=== PATIENT | female | born 1930 | race Caucasian/White ===

== ENCOUNTER 2017-05-21 10:25 | Inpatient (IN) | payer OTHER ==
[~2017-05-21] VITALS: Ht 162.6 cm; Wt 69.1 kg
[~2017-05-21 10:25] MED LIST: ASPIRIN325 MG PO; BENTYL20 MG PO; CALTRATE 600 +1 EAC1 PO; CIPRO500 MG PO; CRESTOR10 MG PO; DIOVAN160 MG PO; MOTRIN800 MG PO; PREDNISONE50 MG PO; ZITHROMAX Z-PA250 MG PO; ZOFRAN4 MG PO
[2017-05-21 11:32] LABS: MCH 28.5 PG (29.0-34.0); MCHC 32.3 G/DL (30.0-36.0); MCV 88.3 FL (83-99); MEAN PLAT.VOLUME 9.2 uM^3 (9.5-12.4); PLATELET COUNT 278 K/uL (156-360); RBC DIS.WIDTH-CV 14.2 % (11.8-14.6); RBC DIS.WIDTH-SD 46.1 % (39-53); RED BLOOD COUNT 4.53 M/uL (3.80-5.20); WHITE BLOOD COUNT 8.3 K/uL (4.1-10.2)
[2017-05-21 11:37] LABS: ADD MIUA? NO; BILIRUBIN NEGATIVE; BLOOD NEGATIVE; COLOR YELLOW ((YELLOW)); GLUCOSE (STRIP) NEGATIVE; KETONES NEGATIVE; LEUKOCYTES NEGATIVE; NITRITE NEGATIVE; PROTEIN (STRIP) NEGATIVE; SPECIFIC GRAVITY 1.016 (1.000-1.030); UCUL ADDED? NO; UROBILINOGEN 0.2 MG/DL (0.2-1.0)
[2017-05-21 11:44] LABS: CHLORIDE 106 mEq/L (99-109); POTASSIUM 4.6 mEq/L (3.7-5.4); SODIUM 136 mEq/L (136-147)
[2017-05-21 11:46] LABS: GLUCOSE 114 mg/dL (70-99)
[2017-05-21 11:47] LABS: ANION GAP 9 MEQ/L (2-14)
[2017-05-21 11:48] LABS: TOTAL BILIRUBIN 0.5 mg/dL (0.0-1.0)
[2017-05-21 11:50] LABS: ALKALINE PHOSPHATASE 105 IU/L (3-129); GFR ESTIMATE (CALCULATED) > 59 mL/min/
[2017-05-21 11:51] LABS: UREA NITROGEN (BUN) 35 mg/dL (9-23)
[2017-05-21 12:39] LABS: TROP-I INTERPRETATION NEGATIVE; TROPONIN-I < 0.01 ng/mL (0.0-0.30)
[2017-05-21] MEDS ORDERED: NORVASC10 MG PO (13:43)
[2017-05-21] MEDS ORDERED: VITAMIN B-12250 MCG PO (13:43)
[2017-05-21] MEDS ORDERED: OSTEO BI-FLEX1 EAC2 PO (13:43)
[2017-05-21] MEDS ORDERED: VITAMIN D31000 UNI2 PO (13:44)
[2017-05-21] MEDS ORDERED: ALENDRONATE SOD70 MG PO (13:44)
[2017-05-21 21:00] VITALS: BP 153/70
[2017-05-22 00:13] VITALS: BP 131/60
[2017-05-22 04:15] VITALS: BP 124/58
[2017-05-22 06:33] LABS: HEMATOCRIT 33.2 % (36.0-46.0); MCH 27.9 PG (29.0-34.0); MCHC 31.6 G/DL (30.0-36.0); MCV 88.1 FL (83-99); MEAN PLAT.VOLUME 8.7 uM^3 (9.5-12.4); PLATELET COUNT 246 K/uL (156-360); RBC DIS.WIDTH-CV 14.3 % (11.8-14.6); RBC DIS.WIDTH-SD 46.1 % (39-53); RED BLOOD COUNT 3.77 M/uL (3.80-5.20)
[2017-05-22 06:51] LABS: ANION GAP 8 MEQ/L (2-14); CHLORIDE 108 MEQ/L (99-109); GFR ESTIMATE (CALCULATED) > 59 mL/min/; GLUCOSE 88 mg/dL (70-99); POTASSIUM 4.3 MEQ/L (3.7-5.4); SAMPLE HEMOLYSIS CHECK 0; SAMPLE ICTERIC CHECK 0; SAMPLE LIPEMIA CHECK 0; SODIUM 139 MEQ/L (136-147); UREA NITROGEN (BUN) 23 mg/dL (9-23)
[2017-05-22 07:20] VITALS: BP 147/65
[2017-05-22 11:55] VITALS: BP 115/58
[2017-05-22 15:40] VITALS: BP 123/59
[2017-05-22 20:36] VITALS: BP 130/61
[2017-05-23] VITALS (7 sets, daily range): BP systolic 125–169; BP diastolic 60–78
[2017-05-23 11:39] LABS: HEMATOCRIT 36.1 % (36.0-46.0); MCH 27.9 PG (29.0-34.0); MCHC 31.6 G/DL (30.0-36.0); MCV 88.3 FL (83-99); MEAN PLAT.VOLUME 8.6 uM^3 (9.5-12.4); PLATELET COUNT 260 K/uL (156-360); RBC DIS.WIDTH-CV 13.7 % (11.8-14.6); RBC DIS.WIDTH-SD 44.4 % (39-53); RED BLOOD COUNT 4.09 M/uL (3.80-5.20); WHITE BLOOD COUNT 4.4 K/uL (4.1-10.2)
[2017-05-23 12:14] LABS: ANION GAP 15 MEQ/L (2-14); CHLORIDE 106 MEQ/L (99-109); SAMPLE HEMOLYSIS CHECK 0; SAMPLE ICTERIC CHECK 0; SAMPLE LIPEMIA CHECK 0; SODIUM 140 MEQ/L (136-147)
[2017-05-23 12:20] LABS: GFR ESTIMATE (CALCULATED) > 59 mL/min/; GLUCOSE 62 mg/dL (70-99); UREA NITROGEN (BUN) 17 mg/dL (9-23)
[2017-05-24 03:35] VITALS: BP 133/74
[2017-05-24 06:44] LABS: HEMATOCRIT 34.3 % (36.0-46.0); MCH 27.9 PG (29.0-34.0); MCHC 31.8 G/DL (30.0-36.0); MCV 87.9 FL (83-99); MEAN PLAT.VOLUME 9.4 uM^3 (9.5-12.4); PLATELET COUNT 241 K/uL (156-360); RBC DIS.WIDTH-CV 13.6 % (11.8-14.6); RBC DIS.WIDTH-SD 43.8 % (39-53); WHITE BLOOD COUNT 3.9 K/uL (4.1-10.2)
[2017-05-24 07:05] VITALS: BP 133/57
[2017-05-24 07:05] LABS: ANION GAP 12 MEQ/L (2-14); CHLORIDE 105 MEQ/L (99-109); GFR ESTIMATE (CALCULATED) > 59 mL/min/; GLUCOSE 67 mg/dL (70-99); POTASSIUM 4.3 MEQ/L (3.7-5.4); SAMPLE HEMOLYSIS CHECK 0; SAMPLE ICTERIC CHECK 0; SAMPLE LIPEMIA CHECK 0; SODIUM 140 MEQ/L (136-147); UREA NITROGEN (BUN) 12 mg/dL (9-23)
[2017-05-24 09:51] LABS: POINT-OF-CARE METER ID UU14162508; POINT-OF-CARE USER ID PUTDRM
[2017-05-24 10:46] LABS: POINT-OF-CARE METER ID UU14162508; POINT-OF-CARE USER ID PUTDRM
[2017-05-24 11:20] VITALS: BP 176/70
[2017-05-24 15:28] VITALS: BP 144/69
[2017-05-24 17:31] LABS: POINT-OF-CARE METER ID UU14162508; POINT-OF-CARE USER ID PUTDRM
[2017-05-24 19:00] VITALS: BP 132/59
[2017-05-25 00:28] VITALS: BP 151/73
[2017-05-25 01:00] LABS: POINT-OF-CARE METER ID UU14162508
[2017-05-25 04:25] VITALS: BP 148/68
[2017-05-25 07:37] VITALS: BP 137/71
[2017-05-25 08:55] LABS: POINT-OF-CARE METER ID UU14314084
[2017-05-25 11:00] VITALS: BP 157/74
[2017-05-25 13:01] LABS: POINT-OF-CARE METER ID UU14314084
[2017-05-25 16:13] VITALS: BP 204/94
[2017-05-25 16:24] VITALS: BP 152/72
[2017-05-25 16:55] LABS: POINT-OF-CARE METER ID UU14208750
[2017-05-26 00:08] VITALS: BP 159/68
[2017-05-26 00:08] LABS: POINT-OF-CARE METER ID UU14162508
[2017-05-26 07:00] VITALS: BP 182/79
[2017-05-26 10:09] VITALS: BP 144/78
[2017-05-26 12:11] LABS: POINT-OF-CARE METER ID UU14208750
[2017-05-26 16:01] VITALS: BP 147/73
[2017-05-26 23:31] VITALS: BP 142/67
[2017-05-27 07:25] VITALS: BP 161/80
[2017-05-27 11:55] LABS: POINT-OF-CARE METER ID UU14162508
[2017-05-27 15:26] VITALS: BP 178/90
[2017-05-27 16:44] LABS: POINT-OF-CARE METER ID UU14162508
[2017-05-27 20:30] VITALS: BP 124/75; BP 170/91
[2017-05-27 21:50] LABS: POINT-OF-CARE METER ID UU14162508
[2017-05-27 22:52] VITALS: BP 132/78
[2017-05-28 00:24] VITALS: BP 125/58
[2017-05-28 04:00] VITALS: BP 132/78
[2017-05-28 07:16] LABS: POINT-OF-CARE METER ID UU14162508
[2017-05-28 08:14] VITALS: BP 176/73
[2017-05-28 12:02] LABS: POINT-OF-CARE METER ID UU14162508
== END 2017-05-28 14:23 | disposition home or self-care (01) | DRG 390 ==
LOC: EME 10:25 → EDOF 18:19 → 2EAST 18:19 → ENRESERV 18:23 → 2EAST 20:46
PROVIDERS: Emergency Medicine; Thoracic Surgery (Cardiothoracic Vascular Surgery)
DX: K56.609 Unspecified intestinal obstruction, unspecified as to partial versus complete obstruction (principal); E78.5 Hyperlipidemia, unspecified; I11.9 Hypertensive heart disease without heart failure; I44.7 Left bundle-branch block, unspecified; I70.1 Atherosclerosis of renal artery; Z90.3 Acquired absence of stomach [part of]; Z79.82 Long term (current) use of aspirin; Z88.5 Allergy status to narcotic agent; Z90.49 Acquired absence of other specified parts of digestive tract
CPT/HCPCS: 74020; 74177; 80048; 80053; 81003; 82948; 84484; 85027; 93005; 99281; 99285; J0360; J1644; J2270; J2405; J7030; J7120; S0028